=== PATIENT | male | born 1985 | race African-American/Black ===

== ENCOUNTER 2021-09-26 07:55 | Emergency (ER) | payer BC ==
[~2021-09-26] VITALS: Ht 167.6 cm; Wt 72.6 kg
== END 2021-09-26 09:38 | disposition home or self-care (01) ==
LOC: ER 07:55
DX: M79.622 Pain in left upper arm (principal); Z91.81 History of falling
CPT/HCPCS: 73030; A4663

== ENCOUNTER 2022-08-05 15:40 | Emergency (ER) | payer BC, OTHER ==
[~2022-08-05] VITALS: Ht 165.1 cm; Wt 70.3 kg
[2022-08-05] MEDS ORDERED: LIDOCAINE 1%-EPI 1:100,000 20 ML VIAL IJ ONE (16:45)
[2022-08-05] MEDS ORDERED: LIDOCAINE HCL 1% 20 ML VIAL ONE (16:59)
--- NOTE | 2022-08-05 17:39 | NUR ---
Alon w/o epi used, paola mac MD.
[2022-08-05] MEDS ORDERED: CEPH500C2 PO (18:13)
== END 2022-08-05 18:32 | disposition home or self-care (01) ==
LOC: ER 15:41
DX: S81.812A Laceration without foreign body, left lower leg, initial encounter (principal); V19.9XXA Pedal cyclist (driver) (passenger) injured in unspecified traffic accident, initial encounter; Y93.89 Activity, other specified; Y92.89 Other specified places as the place of occurrence of the external cause; Y99.8 Other external cause status
CPT/HCPCS: 73590; A4663; J3490